=== PATIENT | male | born 1975 ===

== ENCOUNTER 2018-02-02 21:46 | Emergency (ER) | payer SELFPAY ==
[2018-02-02 22:07] VITALS: BMI 33.5
[2018-02-02 22:53] VITALS: BP 123/75; PULSE 79; RESP 18; TEMP 98.1; O2SAT 98
--- NOTE | 2018-02-02 23:27 | ED PDOC ---
Arrival/HPI - General Chief Complaint: Lower Extremity Problem/Injury Time Seen by Provider: 02/02/18 22:42 Historian: Patient - History of Present Illness Narrative History of Present Illness (Text): 02/02/18 23:28 42-year-old male presents today with a 3 day history of rash to the left side of the abdomen and the left flank. Patient complaining of pruritus and irritation. Patient states today he woke up with a tingling sensation in the leg. Patient states throughout the day the tingling sensation has greatly improved and he only feels slight tingling in the lateral aspect of left foot. pt denies trauma or injury. pt denies fever/chills. no sick contacts. pt denies back pain. denies urinary symptoms. denies any other complaints . Past Medical History - Provider Review Nursing Documentation Reviewed: Yes - Travel History Have you recently traveled outside [place] w/in the past 3 mons?: No - Psychiatric Hx Substance Use: No Family/Social History - Physician Review Nursing Documentation Reviewed: Yes Family/Social History: Unknown Family HX Smoking Status: Current Some Days Smoker Hx Alcohol Use: Yes Frequency of alcohol use: Socially Hx Substance Use: No Allergies/Home Meds Allergies/Adverse Reactions: Allergies No Known Allergies Allergy (Verified 02/02/18 22:04) Review of Systems - Review of Systems Constitutional: absent: Fatigue, Fevers Respiratory: absent: SOB, Cough Cardiovascular: absent: Chest Pain, Palpitations Gastrointestinal: absent: Abdominal Pain, Nausea, Vomiting Genitourinary Male: absent: Dysuria Musculoskeletal: Arthralgias. absent: Back Pain, Neck Pain Skin: Rash, Pruritis Neurological: absent: Headache, Dizziness Psychiatric: absent: Anxiety, Depression Physical Exam Vital Signs Reviewed: Yes Vital Signs Temp Pulse Resp BP Pulse Ox 02/02/18 22:50 98.1 F 79 18 123/75 98 Temperature: Afebrile Blood Pressure: Normal Pulse: Regular Respiratory Rate: Normal Appearance: Positive for: Well-Appearing, Non-Toxic, Comfortable Pain Distress: None Mental Status: Positive for: Alert and Oriented X 3 - Systems Exam Head: Present: Atraumatic Mouth: Present: Moist Mucous Membranes Neck: Present: Normal Range of Motion Respiratory/Chest: Present: Clear to Auscultation, Good Air Exchange. No: Respiratory Distress, Accessory Muscle Use Cardiovascular: Present: Regular Rate and Rhythm, Normal S1, S2. No: Murmurs Abdomen: No: Tenderness Back: No: Normal Inspection, Midline Tenderness, Paraspinal Tenderness Upper Extremity: Present: Normal Inspection, Normal ROM Lower Extremity: Present: Normal Inspection, NORMAL PULSES, Normal ROM, Neurovascularly Intact (sensation intact; pt with slight decreased sensation over lateral aspect of foot; cap refill <2 ), Capillary Refill < 2 s. No: CALF TENDERNESS, Tenderness, Swelling, Erythema, Deformity, Temperature Abnormalties Neurological: Present: GCS=15, Speech Normal Skin: Present: Warm, Dry, Rashes (there are multiple vesicles on erythematous plaque noted along the approx L1 dermatome in the abdomen and left flank; does not cross the midline.) Psychiatric: Present: Alert, Oriented x 3 Medical Decision Making ED Course and Treatment: 02/02/18 23:34 42yr old male presents with shingles rash to left abdomen and flank with left lower leg paresthesias which have improved since this morning. pt with shingles to left abdomen and left flank; rash spares groin/scrotum and buttock. valtrex and motrin given. pt ambulating with steady gait; no edema no erythema no ecchymosis; full rom of all extremities; strong pulses bilaterally. cap refill <2. pt was advised to f/u with neurologist and PMD and return if symptoms worsen, persist or if new symptoms develop. pt was advised to avoid children and women and elderly. Patient verbalizes understanding of discharge instructions and need for immediate followup. all aspects of this case were discussed the attending of record. Impression: Shingles, lower leg paresthesias Motrin every 6 hours as needed for pain Valtrex 1 tablet 3 times daily 7 days follow up with the primary care physician within the next 2 days follow up with the neurologist within the next 2 days. return immediately if symptoms worsen, persist or if new symptoms develop. - Medication Orders Current Medication Orders: Discontinued Medications Ibuprofen (Motrin Tab) 600 mg PO STAT STA Stop: 02/02/18 22:44 Valacyclovir HCl (Valtrex) 1 gm PO STAT STA PRN Reason: Protocol Stop: 02/02/18 22:43 Disposition/Present on Arrival - Present on Arrival Any Indicators Present on Arrival: No History of DVT/PE: No History of Uncontrolled Diabetes: No Urinary Catheter: No History of Decub. Ulcer: No History Surgical Site Infection Following: None - Disposition Have Diagnosis and Disposition been Completed?: Yes Diagnosis: Shingles, History of paresthesia Disposition: HOME/ ROUTINE Disposition Time: 22:57 Patient Plan: Discharge Condition: GOOD Discharge Instructions (ExitCare): Shingles (ED) Additional Instructions: Motrin every 6 hours as needed for pain Valtrex 1 tablet 3 times daily 7 days follow up with the primary care physician within the next 2 days follow up with the neurologist within the next 2 days. return immediately if symptoms worsen, persist or if new symptoms develop. Prescriptions: Ibuprofen [Motrin] 600 mg PO Q6H PRN #20 tab PRN Reason: pain/fever reduction valACYclovir [Valtrex] 1 gm PO TID #21 tab Referrals: Paula Pearson MD [Staff Provider] - Follow up with primary Toro Domingo DO [Staff Provider] - [place] [facility] [place] [facility] [place] - Follow up with primary Forms: [facility] (Azeri), WORK NOTE
== END 2018-02-02 23:32 | disposition home or self-care (01) ==
LOC: ED 21:46
DX: B02.9 Zoster without complications (principal); R20.2 Paresthesia of skin